=== PATIENT | male | born 1980 | race Caucasian/White ===

== ENCOUNTER 2016-04-23 10:08 | Outpatient (CLI) ==
--- NOTE | 2016-04-23 11:47 | US ---
Examination: Banks-scale and color ultrasonographic imaging of the scrotum and testicles. Comparison: None available. Reason for study: Testicular mass. FINDINGS: The right testicle measures approximately 4.2 x 2.2 x 3.3 cm with normal appearing parenc hymal echotexture and normal vascular flow. No lesions are seen within the right testicular parench yma. The right epididymis is unremarkable with normal appearing echotexture and normal vascular sandip w. Within the scrotal sac, and lateral to the right testicle. There are three separate well-circumscri bed lesions without significant interval vascularity with ISO to slightly hypoechoic architecture. The left testicle measures approximately 4.4 x 2.2 x 2.9 cm with normal appearing echotexture and no rmal vascular flow. No masses are seen within the left testicular parenchyma. The left epididymis is unremarkable with normal appearing echotexture and vascular flow. There is a mild left varicocele . Impression: 1. No ultrasonographic evidence of testicular torsion or parenchymal mass lesion. 2. There are three discrete paratesticular lesions adjacent to the right testicle without significa nt interval vascularity. Para testicular tumors are typically benign and may represent an adenomato id, granulomatous, or fibroma etiology. Recommend further evaluation. 3. Mild left varicocele.
== END 2016-04-23 10:09 | disposition home or self-care (01) ==
LOC: RAD 10:08
PROVIDERS: ATTEND Physician Assistant
DX: N50.89 Other specified disorders of the male genital organs (principal)

== ENCOUNTER 2016-12-09 09:16 | Emergency (ER) ==
[2016-12-09 09:23] VITALS: BP 123/86; TEMP 97.2; BMI 21.4
--- NOTE | 2016-12-09 09:59 | ED.PDOC ---
General ED Provider: Dr. BRYAN NORWOOD Chief Complaint: Headache Stated Complaint: Headache x 2 days with nausea/vomiting & photophobia. Maxalt eased TUCKER for a few hours then recurred. Similar to previous migraines. Time Seen by Physician: 09:54 Mode of Arrival: Walk-In Information Source: Patient Nursing and Triage Documentation Reviewed and Agree: Yes Neurological Complaint Exam - Headache Complaint/Exam Onset: Sudden Duration: 2 days Symptoms Are: Still present Timing: Constant Episodes Lasting: Days Worst Headache Ever: No Initial Severity: Moderate Current Severity: Severe Location: Right, Left, Frontal, Temporal Character: Reports: Throbbing, Migraine Aggravating: Reports: Exertion, Position change (lying flat worsens TUCKER), Bright lights Alleviating: Reports: Medications (Maxalt eased symptoms for a few hours then TUCKER recurred) Associated Signs and Symptoms: Reports: Nausea, Vomiting Related History: Reports: Similar episode (migraines) Related Surgical History: Reports: None SAH Risk Factors: Reports: None Meningitis Risk Factors: Reports: None SDH Risk Factors: Reports: None Temporal Arteritis Risk Factors: Reports: Normal Head CT Within Last 12 Months: No Fundoscopic Exam: Present: Normal Findings Papilledema Present: No Temporal Artery Tenderness: Present: None Sinus Tenderness: Present: None TMJ Tenderness: Present: None Meningeal Signs Positive: No Pain on Passive Flexion-Positive Kernig's: No ROM Limited In: No Limitiations Focal Weakness: Present: None Focal Sensory Loss: Present: None Gait: Normal Nystagmus Present: No Gag Reflex Present: Yes [id number]: Normal Findings Romberg Test Positive: No Babinski Sign: Negative Right, Negative Left Heel to Toe Normal: No Differential Diagnoses: Migraine Review of Systems - Review Of Systems Constitutional: Reports: No symptoms Eyes: Reports: Photophobia Ears, Nose, Mouth, Throat: Reports: No symptoms Respiratory: Reports: No symptoms Cardiac: Reports: No symptoms GI: Reports: Nausea, Vomiting : Reports: No symptoms Musculoskeletal: Reports: No symptoms Skin: Reports: No symptoms Neurological: Reports: Headache All Other Systems: Reviewed and Negative Past Medical History - Past Medical History Previously Healthy: Yes Endocrine: Reports: None Cardiovascular: Reports: None Respiratory: Reports: None Hematological: Reports: None Gastrointestinal: Reports: None Genitourinary: Reports: None Neuro/Psych: Reports: None (teenager, severe enough to see doctor approx every 3 months), Migraine Musculoskeletal: Reports: None Cancer: Reports: None - Surgical History General Surgical History: Reports: None - Family History Family History: Reports: None - Social History Smoking Status: Current every day smoker Hx Substance Use: No Alcohol Screening: None Lives: With family - Immunizations Tetanus Shot up to Date: No Influenza Vaccine within 12 Months: No Pneumococcal Vaccine up to Date: No Physical Exam - Physical Exam Appearance: Well-appearing Ill-appearing: None Pain Distress: Moderate Eyes: JADE, EOMI, Conjunctiva clear ENT: Ears normal, Nose normal, Oropharynx normal Neck: Supple Respiratory: Airway patent, Breath sounds clear, Breath sounds equal, Respirations nonlabored Cardiovascular: RRR, Pulses normal, No rub, No murmur GI/: Soft, Nontender, No masses, Bowel sounds normal, No Organomegaly Musculoskeletal: Normal strength, ROM intact, No edema, No calf tenderness Skin: Warm, Dry, Normal color Neurological: Sensation intact, Motor intact, Reflexes intact, Cranial nerves intact, Alert, Oriented Psychiatric: Affect appropriate, Mood appropriate Re-Evaluation - Re-Evaluation Time of Re-Evaluation: 10:52 Status: Improved (TUCKER stillpresent but not as bad. 07/21 vs previous 10/21.) Vital Signs Stable: Yes Pain Level: 10 Appearance: NAD Lungs: Clear Skin: Warm and Dry Neuro: Alert and Oriented X3 CV: RRR Critical Care Note - Critical Care Note Total Time (mins): 0 Course - Course Orders, Labs, Meds: Orders Category Date Time Status Morphine Sulfate [Morphine 2 mg/ml Syringe] MEDS 12/09/16 10:07 Discontinued 2 mg IM ONCE STA Morphine Sulfate [Morphine 2 mg/ml Syringe] MEDS 12/09/16 10:54 Stat 2 mg IM ONCE STA Promethazine HCl [Phenergan 25 mg/ml Vial] MEDS 12/09/16 10:08 Discontinued 25 mg IM ONCE STA Medications Discontinued Medications Generic Name Dose Route Start Last Admin Trade Name Haiderq PRN Reason Stop Dose Admin Morphine Sulfate 2 mg 12/09/16 10:07 12/09/16 10:18 Morphine 2 Mg/Ml Syringe IM 12/09/16 10:08 2 mg ONCE STA Administration Morphine Sulfate 2 mg 12/09/16 10:54 Morphine 2 Mg/Ml Syringe IM 12/09/16 10:55 ONCE STA Promethazine HCl 25 mg 12/09/16 10:08 12/09/16 10:19 Phenergan 25 Mg/Ml Vial IM 12/09/16 10:09 25 mg ONCE STA Administration Vital Signs: Temp Pulse Resp BP Pulse Ox 12/09/16 09:19 97.2 F L 97 H 20 123/86 98 Departure - Departure Time of Disposition: 10:55 Disposition: HOME SELF-CARE Discharge Problem: Migraine Instructions: Migraine Headache (ED) Condition: Good Pt referred to PMD for follow-up: Yes (Establish & follow up with PCP (list given)) Prescriptions: Rizatriptan Benzoate [Maxalt Sheet Sorter] 10 mg PO Q5MIN PRN #18 tab.rapdis PRN Reason: migraine headache Allergies/Adverse Reactions: Allergies No Known Allergies Allergy (Unverified 12/09/16 09:22) Home Medications: Ambulatory Orders Rizatriptan Benzoate [Maxalt Sheet Sorter] 10 mg PO Q5MIN PRN #18 tab.rapdis 12/09/16 Disposition Discussed With: Patient
[2016-12-09] MEDS ORDERED: MORPHINE 2 MG/ML SYRINGE IM STA ×2 (10:07→10:54)
[2016-12-09] MEDS ORDERED: PHENERGAN 25 MG/ML VIAL IM STA (10:08)
== END 2016-12-09 11:42 | disposition home or self-care (01) ==
LOC: ED 09:16
DX: G43.909 Migraine, unspecified, not intractable, without status migrainosus (principal); F17.210 Nicotine dependence, cigarettes, uncomplicated
CPT/HCPCS: 96372; 99282

== ENCOUNTER 2017-03-15 10:46 | Outpatient (CLI) ==
--- NOTE | 2017-03-15 11:54 | CT ---
EXAM: CT lumbar spine without contrast. HISTORY: Back pain with right-sided sciatica COMPARISON: None TECHNIQUE: Serial axial images of the spine were obtained from the lower thoracic spine through the pelvis without contrast. These were viewed in multiple planes. FINDINGS: Vertebral bodies demonstrate no acute compression fracture. There is 0.4 cm of anterolist hesis of L5 on S1 with small disc osteophyte. There are bilateral pallorous defects at L5. The face ts demonstrate minimal arthropathy. There is no lytic or blastic lesion. The remaining vertebral sola dies are normal. Disc spacing is maintained. L1-L2: Normal L2-L3: Normal L3-L4: Small broad-based disc bulge and facet arthropathy. There is no central or neural foraminal n arrowing. L4-L5: Small broad-based disc bulge and facet arthropathy with no significant central or neural clay inal narrowing. L5-S1: Anterolisthesis with broad-based disc bulge and facet arthropathy with moderate right and mild left neural foraminal narrowing. Limited views of the soft tissues are unremarkable. There is a round low attenuation lesion in the le ft iliac anteriorly adjacent to the sacroiliac joint measuring 1.2 cm in diameter with internal low a ttenuation material and material consistent with internal gas. Smaller adjacent low attenuation lesio ns are also present. The borders are sharp. IMPRESSION: 1. Bilateral pars defects at L5 with grade 1 anterolisthesis and moderate right and mild left neural foraminal narrowing. 2. Minimal scattered degenerative disease otherwise. 3. Low attenuation lesions in the anterior left iliac adjacent to the sacroiliac joint line which ap pears to contain internal gas likely representing benign cystic lesions, one with air from the joint space.
== END 2017-03-15 10:47 | disposition home or self-care (01) ==
LOC: RAD 10:46
PROVIDERS: ATTEND Emergency Medicine
DX: M54.41 Lumbago with sciatica, right side (principal); G89.29 Other chronic pain

== ENCOUNTER 2017-03-17 10:51 | Outpatient (CLI) ==
--- NOTE | 2017-03-17 11:29 | CT ---
EXAM: CT head without contrast. HISTORY: Migraine headache. COMPARISON: None available. TECHNIQUE: Multiple axial images of the brain were obtained from the skull base through the vertex w ithout intravenous contrast. Multiplanar reformats were provided. FINDINGS: There is no intracranial hemorrhage or extraaxial collection. The gastelum-white differentiat ion is maintained without evidence for acute large vascular territory infarction. The cortical sulci and basal cisterns are well visualized. There is no hydrocephalus, mass effect, or midline shift. The paranasal sinuses and mastoid air cells are clear. The calvarium is intact. IMPRESSION: No acute intracranial abnormality.
== END 2017-03-17 10:52 | disposition home or self-care (01) ==
LOC: RAD 10:51
PROVIDERS: ATTEND Emergency Medicine
DX: G43.009 Migraine without aura, not intractable, without status migrainosus (principal)

== ENCOUNTER 2017-04-26 13:46 | Outpatient (CLI) ==
--- NOTE | 2017-04-27 15:02 | MRI ---
EXAM: Lumbar spine MRI without contrast. HISTORY: Lumbago with right sciatica. COMPARISON: Lumbar spine CT scan 03/15/2017. TECHNIQUE: Multiplanar, multisequence MR images were acquired lumbar spine without contrast. FINDINGS: Conus medullaris ends at L1-2 and has normal signal intensity. Five non-rib bearing lumba r vertebra are present. The lumbar vertebra are normal in height. There is minor thoracolumbar dext roscoliosis centered at L2-3 and there is a trace retrolisthesis of L4 on L5. There is 6 mm anteroli sthesis of L5 on S1 due to chronic bilateral L5 pars interarticularis defects. There is mild disc sp sana narrowing and disc desiccation at L5-S1. Minor lumbar ventral spondylosis is present. There is mild endplate irregularity from T11-12 to L1-2 and at L5-S1. There are small chronic Schmorl's node s at T11 and T12. And there is a small poorly visualized chronic Schmorl's node along the posterior L 5 inferior endplate. Canal diameter is developmentally narrow. The partially visualized liver, spleen and kidneys are unremarkable. There are no paravertebral mass es. There is osteoarthrosis of both sacroiliac joints and there are degenerative cystic lesions in t he left iliac bone along the left sacroiliac joint. L1-2: The intervertebral disc is normal. L2-3: There is a minor disc bulge that is considered physiologic which minimally narrows the inferio r left neural foramen. L3-4: There is a minor disc bulge that is considered physiologic which minimally narrows the inferi or neural foramina bilaterally. There is minor bilateral facet arthropathy and this causes mild righ t neural foraminal stenosis. L4-5: There is a minor disc bulge that may be physiologic which minimally narrows the inferior neura l foramina bilaterally and minor bilateral facet arthropathy. There is mild to moderate right and mi ld left neural foraminal stenosis. L5-S1: There is anterolisthesis of L5 on S1 and there is a diffuse disc bulge that is asymmetric to the right with a superimposed central disc protrusion that minimally effaces the ventral thecal sac. Minor bilateral facet arthropathy is present and there is moderately severe left and severe right ne ural foraminal stenosis with compression of both L5 nerves, greater on the right. IMPRESSION: 1. 6 mm anterolisthesis L5 on S1 due to chronic bilateral L5 pars interarticularis defects. 2. Moderate discogenic disease L5-S1 with moderately severe left and severe right foraminal stenosis with compression of both L5 nerves, greater on the right. 3. Mild lower thoracic and lumbar degenerative endplate changes with small chronic Schmorl's nodes a t T11, T12 and L5. 4. Bilateral sacroiliac osteoarthrosis with two degenerative cysts along the left sacroiliac joint. Pelvic MRI could better define the anatomy.
== END 2017-04-26 13:47 | disposition home or self-care (01) ==
LOC: RAD 13:46
PROVIDERS: ATTEND Emergency Medicine
DX: M54.41 Lumbago with sciatica, right side (principal); G89.29 Other chronic pain

== ENCOUNTER 2017-12-29 13:01 | Outpatient (CLI) | END 2017-12-29 13:02 | disposition home or self-care (01) | LOC: RHC-LAB 13:01 | PROVIDERS: ATTEND Nurse Practitioner Family | DX: Z00.00 Encounter for general adult medical examination without abnormal findings (principal); Z51.81 Encounter for therapeutic drug level monitoring | CPT/HCPCS: 36415; 80053; 80061; 80306; 84443; 85025 ==

== ENCOUNTER 2018-01-17 15:29 | Outpatient (CLI) | END 2018-01-17 15:30 | disposition home or self-care (01) | LOC: RHC-LAB 15:29 | PROVIDERS: ATTEND Nurse Practitioner Family | DX: R79.89 Other specified abnormal findings of blood chemistry (principal) | CPT/HCPCS: 36415; 84443 ==

== ENCOUNTER 2022-08-18 10:20 | Observation (INO) ==
[2022-08-18 10:27] VITALS: BMI 19.3
--- NOTE | 2022-08-18 10:33 | ED.PDOC ---
General ED Provider: Dr. CHAS HARRIS MD Chief Complaint: Abdominal Pain Stated Complaint: my stomach hurts and i have been vomiting since this morning Time Seen by Provider: 08/18/22 10:33 Information Source: Patient Primary Care Provider: VENKATESH HOWARD APRN, FNP- Nursing and Triage Documentation Reviewed and Agree: Yes Does patient meet sepsis criteria?: No System Inflammatory Response Syndrome: Not Applicable Sepsis Protocol: For patient's 13 years and over: Temp is 96.8 and below OR 101 and greater Pulse >90 BPM Resp >20/minute Acutely Altered Mental Status Are patient's symptoms suggestive of a new infection, such as: -Pneumonia -Skin, Soft Tissue -Endocarditis -UTI -Bone, Joint Infection -Implantable Device -Acute Abdominal Infection -Wound Infection -Meningitis -Blood Stream Catheter Infection -Unknown GI Complaint Exam Abdominal Pain Complaint/Exam Onset: Sudden Duration: 3 hours Symptoms Are: Still present Timing: Constant Initial Severity: Severe Current Severity: Severe Location of Pain: Epigastric Radiates To: Reports Back Character: Reports Sharp Aggravating: Reports Food Alleviating: Reports None Associated Signs and Symptoms: Reports Back pain; Denies Diaphoresis, Fever, Cough, Chest pain, Dizziness, Constipation, Blood in stool, Dysuria or Urinary frequency AAA Risk Factors: Reports None Cardiac Risk Factors: Reports Smoking Review of Systems Review Of Systems Constitutional: Reports No symptoms GI: Reports Abdominal pain, Nausea and Vomiting All Other Systems: Reviewed and Negative [facility] Medical History Severe headache R51 - Headache (ICD-10) Spina bifida Q05.9 - Spina bifida, unspecified (ICD-10) Family History Grandfather/Grandmother Hyperthyroidism Social History Smoking and tobacco status: Current every day smoker Tobacco: How many years used: 30 Details: Occasional Substance use type: marijuana Surgical History cysts removed Physical Exam Physical Exam Appearance: Reports Well-appearing Ill-appearing: None Pain Distress: Moderate Eyes: Reports JADE and EOMI ENT: Reports Ears normal, Nose normal and Oropharynx normal Neck: Supple Respiratory: Reports Airway patent, Breath sounds clear and Breath sounds equal Cardiovascular: Reports RRR, Pulses normal, No rub and No murmur GI/: Reports Soft and Tender (severe epigastric tenderness) Musculoskeletal: Reports Normal strength and ROM intact Skin: Reports Warm and Dry Neurological: Reports Sensation intact and Motor intact Psychiatric: Reports Affect appropriate Critical Care Note Critical Care Note Total Critical Care Time (mins): 0 Course Course 08/19/22 04:51 08/19/22 04:51 Orders, Labs, Meds: Lab Review 08/18/22 10:52 WBC 15.60 H RBC 5.07 Hgb 15.4 Hct 45.2 MCV 89.2 MCH 30.4 MCHC 34.1 RDW Coeff of Juan 13.8 Plt Count 277 Immature Gran % (Auto) 0.3 Neut % (Auto) 85.2 H Lymph % (Auto) 8.1 L Atkinson % (Auto) 4.4 Eos % (Auto) 1.6 Baso % (Auto) 0.4 Neut # (Auto) 13.3 H Lymph # (Auto) 1.3 Atkinson # (Auto) 0.7 Eos # (Auto) 0.3 Baso # (Auto) 0.1 Immature Gran # (Auto) 0.0 Sodium 140.7 Potassium 3.84 Chloride 108.5 H Carbon Dioxide 25.9 Anion Gap 10.14 BUN 9.4 Creatinine 0.88 Estimated GFR (MDRD) 95.00 BUN/Creatinine Ratio 10.68 Glucose 129.9 H Calcium 9.30 Total Bilirubin 0.63 AST 27.0 ALT 21.9 Alkaline Phosphatase 95.8 Total Protein 7.41 Albumin 4.77 Globulin 2.64 Albumin/Globulin Ratio 1.80 Amylase 207.5 H Lipase 900.9 H Orders Category Date Time Status ADMIT OBSERVATION [PLACE PATIENT OBSERVATION] .TO ADMISSION 08/18/22 12:27 Active MEDSURG (NON-MONITORED BED) IV [ED IV/MEDIPORT/POWERPORT] .ONCE EMERGENCY 08/18/22 10:38 Active AMYLASE Stat LAB 08/18/22 10:52 Completed CBC W/ AUTO DIFF Stat LAB 08/18/22 10:52 Completed CMP [COMPREHENSIVE METABOLIC PANEL] Stat LAB 08/18/22 10:52 Completed LIPASE Stat LAB 08/18/22 10:52 Completed 0.9 % Sodium Chloride [Saline Flush] Meds 08/18/22 10:38 Active 1 syr IVF PRN PRN Acetaminophen Meds 08/18/22 10:38 Discontinued 1,000 mg in 100 ml IV ONCE Morphine Sulfate [Morphine 2 mg/ml Syringe] Meds 08/18/22 11:43 Discontinued 2 mg IVP ONCE STA Ondansetron HCl/Pf [Zofran 4 mg/2 ml] Meds 08/18/22 10:38 Discontinued 4 mg IVP ONCE STA Pantoprazole Sodium [Protonix IV] Meds 08/18/22 10:38 Discontinued 40 mg IVP ONCE STA Sodium Chloride 0.9% [Sodium Chloride] 1,000 ml Meds 08/18/22 10:[address] ABDOMEN/PELVIS WO CONTRAST Stat RADS 08/18/22 10:38 Completed Medications Generic Name Dose Route Start Last Admin Trade Name Freq PRN Reason Stop Dose Admin Enoxaparin Sodium 40 mg 08/19/22 09:00 Enoxaparin Sodium 40 Mg/0.4 Ml Syr SUBCUT DAILY CARL Morphine Sulfate 2 mg 08/18/22 12:54 08/18/22 16:39 Morphine Sulfate 2 Mg/Ml Syringe IVP 2 mg Q4HR PRN Administration Abdominal Pain Nicotine 1 patch 08/18/22 14:35 08/18/22 16:38 Nicotine 21 Mg Patch.Td24 TD 1 patch DAILY CARL Administration Ondansetron HCl 4 mg 08/18/22 12:54 08/18/22 14:27 Ondansetron Hcl/Pf 4 Mg/2 Ml Sdv IVP 4 mg Q6HR PRN Administration nausea/vomiting Sodium Chloride 1 syr 08/18/22 10:38 0.9% Sodium Chloride 10 Ml Disp.Syrin IVF PRN PRN To flush IV Discontinued Medications Generic Name Dose Route Start Last Admin Trade Name Freq PRN Reason Stop Dose Admin Acetaminophen 1,000 mg in 100 mls @ 400 mls/hr 08/18/22 10:38 08/18/22 11:01 Acetaminophen IV 08/18/22 10:52 400 mls/hr ONCE ONE Administration Sodium Chloride 1,000 mls @ 1,000 mls/hr 08/18/22 10:38 08/18/22 11:01 Sodium Chloride IV 08/18/22 11:37 1,000 mls/hr BOLUS STA Administration Lactated Ringer's 1,000 mls @ 250 mls/hr 08/18/22 12:54 08/18/22 14:27 Lactated Ringers IV 08/18/22 16:53 250 mls/hr .Q4H STA Administration Morphine Sulfate 2 mg 08/18/22 11:43 08/18/22 11:55 Morphine Sulfate 2 Mg/Ml Syringe IVP 08/18/22 11:44 2 mg ONCE STA Administration Morphine Sulfate 2 mg 08/18/22 18:56 08/18/22 19:13 Morphine Sulfate 2 Mg/Ml Syringe IVP 08/18/22 18:57 2 mg ONCE STA Administration Ondansetron HCl 4 mg 08/18/22 10:38 08/18/22 11:02 Ondansetron Hcl/Pf 4 Mg/2 Ml Sdv IVP 08/18/22 10:39 4 mg ONCE STA Administration Pantoprazole Sodium 40 mg 08/18/22 10:38 08/18/22 11:01 Pantoprazole Sodium 40 Mg Vial IVP 08/18/22 10:39 40 mg ONCE STA Administration Vital Signs: Temp Pulse Resp BP Pulse Ox 08/18/22 10:21 97.6 F 63 16 125/81 99 41 years old male with past medical history of low back pain due to lumbar disc herniation coming for severe abdominal pain and vomiting since this morning. Patient reports that since he woke up this morning he has been vomiting had about 13 episodes of vomiting nonbloody nonbilious and associated with severe abdominal pain in epigastric area radiating to his back. Patient reports that he takes a lot of ibuprofen and Tylenol for his back pain takes about 600 mg twice a day of ibuprofen, patient also is chronic smoker smokes 1 pack a day and smokes marijuana. Last meal was yesterday it is allergy of hamburger last bowel movement was also yesterday no diarrhea. Patient drinks alcohol occasionally no other home medications.Labs showed WBC of 15,000 no source of infection elevated amylase to 7.[address] scan is negative for acute findings symptoms and lab findings are consistent with acute pancreatitis patient was given 40 mg of Protonix IV 4 mg of Zofran and Tylenol 1 g IV and 2 mg of IV morphine symptoms has improved patient also received 1 L of NS bolus. Spoke with hospitalist Krishna discussed the patient condition regarding admission for IV fluids nausea and pain control and she is agreeable and patient will be admitted to her services Discharge Plan Discharge Patient Disposition: ADMITTED INPATIENT Discharge Problem: Acute pancreatitis Did you review [place] [employer] for ALL controlled substances?: Not Applicable ED Provider: CHAS HARRIS Condition: Poor Physician Progress Note: []
[2022-08-18] MEDS ORDERED: ACETAMINOPHEN 1,000 MG/100 ML BAG IV ONE (10:38)
[2022-08-18] MEDS ORDERED: ZOFRAN 4 MG/2 ML IVP STA (10:38)
[2022-08-18] MEDS ORDERED: SODIUM CHLORIDE 1,000 ML IV STA (10:38)
[2022-08-18] MEDS ORDERED: PROTONIX IV IVP STA (10:38)
[2022-08-18 10:56] LABS: BASOPHILS # (AUTO) 0.1 K/uL (0-0.2); BASOPHILS % (AUTO) 0.4 % (0.0-3.0); EOSINOPHILS # (AUTO) 0.3 K/ul (0.0-0.7); EOSINOPHILS % (AUTO) 1.6 % (0.0-7.0); HEMATOCRIT 45.2 % (42.0-52.0); HEMOGLOBIN 15.4 g/dl (14.0-18.0); IMMATURE GRANULOCYTE % (AUTO) 0.3 % (0.0-5.0); LYMPHOCYTES # (AUTO) 1.3 K/uL (0.60-3.4); LYMPHOCYTES % (AUTO) 8.1 (10.0-50.0); MEAN CORPUSCULAR HEMOGLOBIN 30.4 pg (27.0-31.0); MEAN CORPUSCULAR HGB CONC 34.1 (31.8-35.4); MEAN CORPUSCULAR VOLUME 89.2 fl (80.0-94.0); MONOCYTES # (AUTO) 0.7 K/uL (0.4-2.0); MONOCYTES % (AUTO) 4.4 (0-10); NEUTROPHILS # (AUTO) 13.3 K/ul (2.0-6.9); NEUTROPHILS % (AUTO) 85.2 % (42.2-75.2); PLATELET COUNT 277 10^3/uL (140-440); RDW COEFFICIENT OF VARIATION 13.8 % (11.6-14.8); RED BLOOD COUNT 5.07 10^6/ul (4.70-6.10)
[2022-08-18 11:08] LABS: ALANINE AMINOTRANSFERASE 21.9 U/L (0-50); ALBUMIN 4.77 g/dL (3.5-5.0); ALKALINE PHOSPHATASE 95.8 U/L (38-126); AMYLASE 207.5 U/L (30-110); BILIRUBIN,TOTAL 0.63 mg/dL (0.2-1.3); BLOOD UREA NITROGEN 9.4 mg/dL (9-20); CALCIUM 9.3 mg/dL (8.4-10.2); CARBON DIOXIDE 25.9 mmol/L (22-30.0); CHLORIDE 108.5 mmol/L (98-107); CREATININE 0.88 mg/dL (0.60-1.10); GLUCOSE 129.9 mg/dL (74-106); LIPASE 900.9 U/L (23-300); POTASSIUM 3.84 mmol/L (3.5-5.1); SODIUM 140.7 mmol/L (134.5-145); TOTAL PROTEIN 7.41 g/dL (6.3-8.2)
[2022-08-18] MEDS ORDERED: MORPHINE 2 MG/ML SYRINGE IVP STA ×2 (11:43→18:56)
--- NOTE | 2022-08-18 11:50 | CT ---
EXAM: CT ABDOMEN AND PELVIS WITHOUT CONTRAST HISTORY: Acute abdominal pain. TECHNIQUE: CT acquisition of the abdomen and pelvis from the lower thorax through the pelvis without IV contrast administration. IV contrast: None. Oral contrast: None. Low dose protocol: No. CT Dose Reduction Techniques Performed: Yes. COMPARISON: None FINDINGS: Liver: No mass. Normal morphology. Biliary: No biliary ductal dilation. Gallbladder is normal. Pancreas: No duct dilation. No mass. Spleen: Calcified splenic granulomas. No splenomegaly. Adrenals: No mass. Kidneys/Ureters: No mass, calculus, or hydronephrosis. GI Tract: No bowel dilation. No bowel wall thickening. Normal appendix. No diverticulosis. Peritoneal Cavity: No ascites. Retroperitoneum: No fluid collection. Lymph Nodes: No lymphadenopathy. Vasculature: No aortic calcifications. No aortic or iliac aneurysm within limitations of noncontrast examination. Pelvis: Urinary bladder is normal. No free fluid. Bones/Soft Tissues: Chronic bilateral L5 pars defects with associated grade II anterolisthesis of fiv e on S1 and severe bilateral L5-S1 neural foraminal stenosis. Mild chronic anterior wedge compressio n deformities of T10, T11, and T12. No acute fracture. Visualized soft tissues are within normal lambert its. Lower Thorax: Within normal limits. IMPRESSION: No acute abnormality in the abdomen or pelvis. Chronic L5 pars defects with grade 2 anterolisthesis of L5 on S1 resulting in severe bilateral neural foraminal stenosis. All CT scans are performed using dose optimization techniques as appropriate to the performed exam an d include at least one of the following: Automated exposure control, adjustment of the mA and/or kV according t o size, and the use of iterative reconstruction technique.
[2022-08-18] MEDS ORDERED: ZOFRAN 4 MG/2 ML IVP PRN (12:54)
[2022-08-18] MEDS ORDERED: LACTATED RINGERS 1,000 ML IV STA (12:54)
--- NOTE | 2022-08-18 13:12 | PCM ---
Date of Service Date Seen by Provider: 08/18/22 Time Seen by Provider: 12:30 Admit Day/Time Admission Date: 08/18/22 Admission Time: 12:27 Reason for Admission Chief Complaint: PANCREATITIS Hospital Provider Hospital Provider: KRISHNA DAVIES PA-C, [facility] Primary Care Physician Primary Care Physician: VENKATESH HOWARD APRN, FNP-BC History of Present Illness History of Present Illness: Patient is a 41-year-old male with past medical history of spina bifida who presented to the ER with chief complaint of nausea, vomiting, abdominal pain since the middle of the night. He states he woke up not feeling well. He felt fine yesterday. He states that he has upper mid back pain as well but he always has this pain so he is unsure if it is worse. Denies fever. No new medications. He denies alcohol use other than an occasional drink. States he has not had alcohol in the last few days. No history of pancreatitis in the past. In the ER he was found to have a lipase of 900, wbc count 15. Labs otherwise unremarkable. CT abdomen pelvis without negative. Patient was given fluids, morphine, Zofran with relief. Patient is feeling better at this time. He will be admitted to observation on [facility] for further evaluation and treatment. Case Discussed With Case Discussed With: Patient's case was discussed with the ER Physicians, Dr. Jeremie Love [facility] Medical History Severe headache R51 - Headache (ICD-10) Spina bifida Q05.9 - Spina bifida, unspecified (ICD-10) Surgical History cysts removed Family History Grandfather/Grandmother Hyperthyroidism Social History (Updated 08/18/22 @ 13:02 by KRISHNA DAVIES PA-C) Smoking and tobacco status: Current every day smoker Tobacco: How many years used: 30 Details: Occasional Substance use type: marijuana Allergies Allergies Allergy/AdvReac Type Severity Reaction Status Date / Time No Known Allergies Allergy Unverified 12/09/16 09:22 Current Medications Home Medications 1 [No Reported Medications] 08/18/22 [History Confirmed 08/18/22 Last Taken Unknown] Home Enoxaparin Sodium (Enoxaparin Sodium 40 Mg/0.4 Ml Syr) 40 mg SUBCUT DAILY CARL Lactated Ringer's (Lactated Ringers) 1,000 mls @ 250 mls/hr IV .Q4H STA Stop: 08/18/22 16:53 Morphine Sulfate (Morphine Sulfate 2 Mg/Ml Syringe) 2 mg IVP Q4HR PRN PRN Reason: Abdominal Pain Ondansetron HCl (Ondansetron Hcl/Pf 4 Mg/2 Ml Sdv) 4 mg IVP Q6HR PRN PRN Reason: nausea/vomiting Sodium Chloride (0.9% Sodium Chloride 10 Ml Disp.Syrin) 1 syr IVF PRN PRN PRN Reason: To flush IV Discontinued Medications Acetaminophen (Acetaminophen) 1,000 mg in 100 mls @ 400 mls/hr IV ONCE ONE Stop: 08/18/22 10:52 Last Admin: 08/18/22 11:01 Dose: 400 mls/hr Sodium Chloride (Sodium Chloride) 1,000 mls @ 1,000 mls/hr IV BOLUS STA Stop: 08/18/22 11:37 Last Admin: 08/18/22 11:01 Dose: 1,000 mls/hr Morphine Sulfate (Morphine Sulfate 2 Mg/Ml Syringe) 2 mg IVP ONCE STA Stop: 08/18/22 11:44 Last Admin: 08/18/22 11:55 Dose: 2 mg Ondansetron HCl (Ondansetron Hcl/Pf 4 Mg/2 Ml Sdv) 4 mg IVP ONCE STA Stop: 08/18/22 10:39 Last Admin: 08/18/22 11:02 Dose: 4 mg Pantoprazole Sodium (Pantoprazole Sodium 40 Mg Vial) 40 mg IVP ONCE STA Stop: 08/18/22 10:39 Last Admin: 08/18/22 11:01 Dose: 40 mg Review of Systems Constitutional: Denies Fever, Fatigue or Weakness Head: Reports Normocephalic and Atraumatic Eyes: Denies Vision Changes Ears: Denies Pain or Drainage Nose: Denies Post Nasal Drip or Congestion Mouth: Denies Sores or Pain Throat: Denies Sore Throat Cardiovascular: Denies Chest pain, Chest Pressure or Edema Respiratory: Denies Cough or Shortness of air Gastrointestinal: Reports Nausea, Vomiting and Abdominal pain; Denies Diarrhea Genitourinary: Denies Dysuria, Hematuria or Frequency Musculoskeletal: Reports Back Pain (Chronic) Dermatologic: Denies Rashes Neurological: Denies Headache, Dizziness, Syncope, Loss of Conciousness or Seizure Psychiatric: Denies Depression, Anxiety or Suicidal Physical examination Most Recent Vital Signs: Most Recent Vital Signs Temperature 97.6 F 08/18/22 10:21 Temperature Source Tympanic 08/18/22 10:21 Pulse Rate 63 08/18/22 10:21 Respiratory Rate 16 08/18/22 10:21 Blood Pressure 125/81 08/18/22 10:21 O2 Sat by Pulse Oximetry 99 08/18/22 10:21 Height 5 ft 9 in 08/18/22 10:21 Weight 131 lb 6.4 oz 08/18/22 10:21 Appearance: Positive Well-appearing, Well-nourished and Alert and Oriented x3 Skin: Positive [place], Warm, Good Turgor and Good Color; Negative Jaundice HEENT: Positive Normocephalic and Atraumatic Neck: Positive Supple and Midline Trachea Chest/Lungs: Positive Symmetrical With Equal Breath Sounds and Clear to Auscultation Bilaterally; Negative Rales, Rhonci or Wheezes Heart: Positive RRR GI/: Positive Soft, Bowel Sounds Normal and Tender (+Generalized tenderness) Musculoskeletal: Negative Decreased ROM Extremities: Positive Intact Peripheral Pulses; Negative Edema Neurological: Positive Cranial Nerves Intact, Alert, Oriented and Muscle Strength 5/5 in Upper and Lower Extremities Bilaterally Psychiatric: Positive Oriented x4, Appropriate Mood, Appropriate Affect, Intact Memory, Normal Judgement and Normal Insight Labs This Visit Labs This Visit: Labs This Visit 08/18/22 10:52 WBC 15.60 H RBC 5.07 Hgb 15.4 Hct 45.2 MCV 89.2 MCH 30.4 MCHC 34.1 RDW Coeff of Juan 13.8 Plt Count 277 Immature Gran % (Auto) 0.3 Neut % (Auto) 85.2 H Lymph % (Auto) 8.1 L [place] % (Auto) 4.4 Eos % (Auto) 1.6 Baso % (Auto) 0.4 Neut # (Auto) 13.3 H Lymph # (Auto) 1.3 [place] # (Auto) 0.7 Eos # (Auto) 0.3 Baso # (Auto) 0.1 Immature Gran # (Auto) 0.0 Sodium 140.7 Potassium 3.84 Chloride 108.5 H Carbon Dioxide 25.9 Anion Gap 10.14 BUN 9.4 Creatinine 0.88 Estimated GFR (MDRD) 95.00 BUN/Creatinine Ratio 10.68 Glucose 129.9 H Calcium 9.30 Total Bilirubin 0.63 AST 27.0 ALT 21.9 Alkaline Phosphatase 95.8 Total Protein 7.41 Albumin 4.77 Globulin 2.64 Albumin/Globulin Ratio 1.80 Amylase 207.5 H Lipase 900.9 H Imaging Imaging: EXAM: CT ABDOMEN AND PELVIS WITHOUT CONTRAST HISTORY: Acute abdominal pain. TECHNIQUE: CT acquisition of the abdomen and pelvis from the lower thorax through the pelvis without IV contrast administration. IV contrast: None. Oral contrast: None. Low dose protocol: No. CT Dose Reduction Techniques Performed: Yes. COMPARISON: None FINDINGS: Liver: No mass. Normal morphology. Biliary: No biliary ductal dilation. Gallbladder is normal. Pancreas: No duct dilation. No mass. Spleen: Calcified splenic granulomas. No splenomegaly. Adrenals: No mass. Kidneys/Ureters: No mass, calculus, or hydronephrosis. GI Tract: No bowel dilation. No bowel wall thickening. Normal appendix. No diverticulosis. Peritoneal Cavity: No ascites. Retroperitoneum: No fluid collection. Lymph Nodes: No lymphadenopathy. Vasculature: No aortic calcifications. No aortic or iliac aneurysm within limitations of noncontrast examination. Pelvis: Urinary bladder is normal. No free fluid. Bones/Soft Tissues: Chronic bilateral L5 pars defects with associated grade II anterolisthesis of five on S1 and severe bilateral L5-S1 neural foraminal stenosis. Mild chronic anterior wedge compression deformities of T10, T11, and T12. No acute fracture. Visualized soft tissues are within normal limits. Lower Thorax: Within normal limits. IMPRESSION: No acute abnormality in the abdomen or pelvis. Chronic L5 pars defects with grade 2 anterolisthesis of L5 on S1 resulting in severe bilateral neural foraminal stenosis. Review Statement Review Statement: I have independently reviewed and interpreted the labs/EKGs/imaging that were ordered by the ER provider. I have reviewed all outside records that are availa ble currently in our EMR including imaging/notes/labs from previous visits. Plan Plan: A&P: 1. Acute pancreatitis, unknown etiology - NPO, LR at 250 ml/hr, zofran 4 mg IVP prn for nausea, morphine 2 mg IVP prn for pain. RUQ US ordered. Lipid panel ordered. Trend Lipase. If pain and n/v free, may advance diet to clear liquid. 2. Leukocytosis - No infection noted. Likely in setting of acute pancreatitis. Repeat CBC in AM. 3. History of spina bifida - Severe miguel neural foraminal stenosis found on CT. F/u outpatient. Pt has chronic back pain. DVT Prophylaxis: Lovenox Time Spent: Greater than 80 minutes spent with patient, 50% of the time spent with this patient was devoted to counseling and coordination of care. [facility] minutes spent discussing advance care planning. FULL CODE Smoking Cessation: 3 minutes spent discussing smoking cessation. Admit to: Obs Discussed Plan of Care with Dr. Marcelina Villegas. Medications Medication Orders: Medications Ordered Category Date Time Status 0.9 % Sodium Chloride [Saline Flush] Meds 08/18/22 10:38 Active 1 syr IVF PRN PRN Enoxaparin Sodium [Lovenox] Meds 08/19/22 09:00 Ordered 40 mg SUBCUT DAILY Morphine Sulfate [Morphine 2 mg/ml Syringe] Meds 08/18/22 12:54 Ordered 2 mg IVP Q4HR PRN Ondansetron HCl/Pf [Zofran 4 mg/2 ml] Meds 08/18/22 12:54 Ordered 4 mg IVP Q6HR PRN Ringers Lactated Solution [Lactated Ringers] 1,000 ml Meds 08/18/22 12:54 Ordered IV 250 mls/hr
[2022-08-18 14:01] LABS: CHOLESTEROL 135.9 mg/dL (0-200); HDL CHOLESTEROL 47.8 mg/dL (35-60); TRIGLYCERIDES 58.7 mg/dL (0-150)
[2022-08-18] MEDS: MORPHINE 2 MG/ML SYRINGE IVP PRN ×2 (14:27→16:39)
--- NOTE | 2022-08-18 14:41 | US ---
EXAM: ULTRASOUND ABDOMEN COMPLETE. HISTORY: Acute pancreatitis COMPARISON: CT earlier the same day TECHNIQUE: Abdominal, real time with image documentation: Complete. FINDINGS: Liver: Normal. No intrahepatic biliary dilatation. Portal venous flow is normal direction. Gallbladder: Small amount of low-level dependent echoes. No echogenic shadowing stones or wall thickening. Common bile duct: 0.4 cm. Pancreas: Visualized portions are unremarkable. Spleen: Normal, length 8.8 cm. Right kidney: 9.7 cm length. No hydronephrosis. Left kidney: 11.1 cm in length. No hydronephrosis. Aorta: Visualized portions are normal in caliber. IVC: Visualized portions are normal in caliber. Urinary bladder normal. IMPRESSION: 1. No acute sonographic abnormality of the abdomen. 2. Small amount of gallbladder sludge.
[2022-08-18] MEDS: NICODERM 21 MG TD SCH (16:38)
[2022-08-19 05:11] LABS: BASOPHILS % (AUTO) 0.2 % (0.0-3.0); EOSINOPHILS # (AUTO) 0.4 K/ul (0.0-0.7); HEMATOCRIT 39.3 % (42.0-52.0); HEMOGLOBIN 13.2 g/dl (14.0-18.0); IMMATURE GRANULOCYTE # (AUTO) 0.1 (0.0-1.0); IMMATURE GRANULOCYTE % (AUTO) 0.4 % (0.0-5.0); LYMPHOCYTES # (AUTO) 2.7 K/uL (0.60-3.4); LYMPHOCYTES % (AUTO) 20.4 (10.0-50.0); MEAN CORPUSCULAR HGB CONC 33.6 (31.8-35.4); MEAN CORPUSCULAR VOLUME 89.3 fl (80.0-94.0); MONOCYTES # (AUTO) 1.1 K/uL (0.4-2.0); MONOCYTES % (AUTO) 8.4 (0-10); NEUTROPHILS # (AUTO) 8.8 K/ul (2.0-6.9); NEUTROPHILS % (AUTO) 67.6 % (42.2-75.2); PLATELET COUNT 243 10^3/uL (140-440); RDW COEFFICIENT OF VARIATION 13.8 % (11.6-14.8); WHITE BLOOD COUNT 13.02 K/ul (4.2-10.2)
[2022-08-19 05:24] LABS: ALANINE AMINOTRANSFERASE 17.1 U/L (0-50); ALBUMIN 3.61 g/dL (3.5-5.0); ALKALINE PHOSPHATASE 69.8 U/L (38-126); ASPARTATE AMINO TRANSFERASE 21.5 U/L (17-59); BILIRUBIN,TOTAL 0.74 mg/dL (0.2-1.3); BLOOD UREA NITROGEN 5.9 mg/dL (9-20); CALCIUM 8.48 mg/dL (8.4-10.2); CARBON DIOXIDE 28.2 mmol/L (22-30.0); CHLORIDE 106.9 mmol/L (98-107); CREATININE 0.9 mg/dL (0.60-1.10); GLUCOSE 98.6 mg/dL (74-106); LIPASE 567.9 U/L (23-300); POTASSIUM 3.59 mmol/L (3.5-5.1); TOTAL PROTEIN 5.81 g/dL (6.3-8.2)
[2022-08-19] MEDS ORDERED: LOVENOX SUBCUT SCH (09:00)
[2022-08-19] MEDS: NICODERM 21 MG TD SCH (10:26)
[2022-08-19 10:29] VITALS: BP 119/81; RESP 17; TEMP 96.9
--- NOTE | 2022-08-19 10:45 | DCSUM ---
Admission Date Admission Date: 08/18/22 Discharge Date Discharge Date: 08/19/22 Admission Diagnosis Admission Diagnosis: 1. Acute Pancreatitis Discharge Diagnosis Discharge Diagnosis: 1. Acute pancreatitis, resolved 2. Spina bifida, chronic, stable Hospital Provider Hospital Provider: KRISHNA DAVIES PA-C, [facility] [place] Primary Care Physician Primary Care Physician: VENKATESH HOWARD APRN, PRODUCT DEVELOPMENT CONSULTANT-[employer] Summary of History and Physical Summary of History and Physical: Patient is a 41-year-old male with past medical history of spina bifida who presented to the ER with chief complaint of nausea, vomiting, abdominal pain since the middle of the night. He states he woke up not feeling well. He felt fine yesterday. He states that he has upper mid back pain as well but he always has this pain so he is unsure if it is worse. Denies fever. No new medications. He denies alcohol use other than an occasional drink. States he has not had alcohol in the last few days. No history of pancreatitis in the past. In the ER he was found to have a lipase of 900, wbc count 15. Labs otherwise unremarkable. CT abdomen pelvis without negative. Patient was given fluids, morphine, Zofran with relief. Patient is feeling better at this time. He will be admitted to observation on [facility] for further evaluation and treatment. Hospital Course Subjective: Patient was treated with IV fluids, Zofran, morphine. He has not required morphine since last night. His nausea has resolved. He was able to tolerate p.o. diet. Lipase has improved to 500s. Right upper quadrant ultrasound was negative for any acute findings. Lipid panel normal. No new recent medic ations. Discussed unknown etiology at this time. Advised to push fluids and progress diet as tolerated. Avoid any alcohol use. Patient is agreeable to plan of care. He does ask to not make a PCP follow-up for him at this time as he has no insurance. He understands the importance of getting in with a primary care provider as soon as he is able. Appearance: Pleasant, No Apparent Distress, Alert and Well-appearing HEENT: MMM and Supple CVS: No Murmur Abdomen: Soft, Non-Tender and No Distention Respiratory: No Dyspnea Extremities: No Edema Vital Signs: Most Recent Vital Signs Temperature 96.9 F L 08/19/22 10:00 Temperature Source Temporal Artery Scan 08/19/22 10:00 Temperature Source Tympanic 08/18/22 10:21 Pulse Rate 88 08/19/22 10:00 Respiratory Rate 17 08/19/22 10:00 Blood Pressure 119/81 08/19/22 10:00 Blood Pressure Mean 93 08/19/22 10:00 Blood Pressure Left Arm 111/71 08/18/22 13:11 Blood Pressure Location Right Arm 08/19/22 10:00 Blood Pressure Position Sitting 08/19/22 10:00 O2 Sat by Pulse Oximetry 99 08/19/22 10:00 Oxygen Delivery Method Room Air 08/19/22 10:00 Height 5 ft 9 in 08/18/22 13:11 Weight 131 lb 08/18/22 13:11 Imaging: EXAM: CT ABDOMEN AND PELVIS WITHOUT CONTRAST HISTORY: Acute abdominal pain. TECHNIQUE: CT acquisition of the abdomen and pelvis from the lower thorax through the pelvis without IV contrast administration. IV contrast: None. Oral contrast: None. Low dose protocol: No. CT Dose Reduction Techniques Performed: Yes. COMPARISON: None FINDINGS: Liver: No mass. Normal morphology. Biliary: No biliary ductal dilation. Gallbladder is normal. Pancreas: No duct dilation. No mass. Spleen: Calcified splenic granulomas. No splenomegaly. Adrenals: No mass. Kidneys/Ureters: No mass, calculus, or hydronephrosis. GI Tract: No bowel dilation. No bowel wall thickening. Normal appendix. No diverticulosis. Peritoneal Cavity: No ascites. Retroperitoneum: No fluid collection. Lymph Nodes: No lymphadenopathy. Vasculature: No aortic calcifications. No aortic or iliac aneurysm within limitations of noncontrast examination. Pelvis: Urinary bladder is normal. No free fluid. Bones/Soft Tissues: Chronic bilateral L5 pars defects with associated grade II anterolisthesis of five on S1 and severe bilateral L5-S1 neural foraminal stenosis. Mild chronic anterior wedge compression deformities of T10, T11, and T12. No acute fracture. Visualized soft tissues are within normal limits. Lower Thorax: Within normal limits. IMPRESSION: No acute abnormality in the abdomen or pelvis. Chronic L5 pars defects with grade 2 anterolisthesis of L5 on S1 resulting in severe bilateral neural foraminal stenosis. EXAM: ULTRASOUND ABDOMEN COMPLETE. HISTORY: Acute pancreatitis COMPARISON: CT earlier the same day TECHNIQUE: Abdominal, real time with image documentation: Complete. FINDINGS: Liver: Normal. No intrahepatic biliary dilatation. Portal venous flow is normal direction. Gallbladder: Small amount of low-level dependent echoes. No echogenic shadowing stones or wall thickening. Common bile duct: 0.4 cm. Pancreas: Visualized portions are unremarkable. Spleen: Normal, length 8.8 cm. Right kidney: 9.7 cm length. No hydronephrosis. Left kidney: 11.1 cm in length. No hydronephrosis. Aorta: Visualized portions are normal in caliber. IVC: Visualized portions are normal in caliber. Urinary bladder normal. IMPRESSION: 1. No acute sonographic abnormality of the abdomen. 2. Small amount of gallbladder sludge. Lab Results Last 24 Hours: 08/19/22 08/19/22 08/18/22 04:51 04:51 12:54 WBC 13.02 H RBC 4.40 L Hgb 13.2 L Hct 39.3 L MCV 89.3 MCH 30.0 MCHC 33.6 RDW Coeff of Juan 13.8 Plt Count 243 Immature Gran % (Auto) 0.4 Neut % (Auto) 67.6 Lymph % (Auto) 20.4 [place] % (Auto) 8.4 Eos % (Auto) 3.0 Baso % (Auto) 0.2 Neut # (Auto) 8.8 H Lymph # (Auto) 2.7 [place] # (Auto) 1.1 Eos # (Auto) 0.4 Baso # (Auto) 0.0 Immature Gran # (Auto) 0.1 Sodium 138.0 Potassium 3.59 Chloride 106.9 Carbon Dioxide 28.2 Anion Gap 6.49 BUN 5.9 L Creatinine 0.90 Estimated GFR (MDRD) 93.00 BUN/Creatinine Ratio 6.55 Glucose 98.6 Hemoglobin A1c 5.04 Calcium 8.48 Total Bilirubin 0.74 AST 21.5 ALT 17.1 Alkaline Phosphatase 69.8 D Total Protein 5.81 L Albumin 3.61 Globulin 2.20 Albumin/Globulin Ratio 1.64 Triglycerides 58.7 Cholesterol 135.9 LDL Cholesterol, Calc 76 VLDL Cholesterol 12 HDL Cholesterol 47.8 Cholesterol/HDL Ratio 2.8 L Amylase Lipase 551.7 H 567.9 H 08/18/22 10:52 WBC 15.60 H RBC 5.07 Hgb 15.4 Hct 45.2 MCV 89.2 MCH 30.4 MCHC 34.1 RDW Coeff of Juan 13.8 Plt Count 277 Immature Gran % (Auto) 0.3 Neut % (Auto) 85.2 H Lymph % (Auto) 8.1 L [place] % (Auto) 4.4 Eos % (Auto) 1.6 Baso % (Auto) 0.4 Neut # (Auto) 13.3 H Lymph # (Auto) 1.3 [place] # (Auto) 0.7 Eos # (Auto) 0.3 Baso # (Auto) 0.1 Immature Gran # (Auto) 0.0 Sodium 140.7 Potassium 3.84 Chloride 108.5 H Carbon Dioxide 25.9 Anion Gap 10.14 BUN 9.4 Creatinine 0.88 Estimated GFR (MDRD) 95.00 BUN/Creatinine Ratio 10.68 Glucose 129.9 H Hemoglobin A1c Calcium 9.30 Total Bilirubin 0.63 AST 27.0 ALT 21.9 Alkaline Phosphatase 95.8 Total Protein 7.41 Albumin 4.77 Globulin 2.64 Albumin/Globulin Ratio 1.80 Triglycerides Cholesterol LDL Cholesterol, Calc VLDL Cholesterol HDL Cholesterol Cholesterol/HDL Ratio Amylase 207.5 H Lipase 900.9 H Discharge Instructions Discharge Planning: Discharge Planning > 80 minutes DISCHARGE TO HOME DX: ACUTE PANCREATITIS PRESCRIPTIONS: NONE DIET: PROGRESS TOLERATED, PUSH FLUIDS ACTIVITY: TOLERATED Discharge Medications: Medications at Discharge (Home Meds & RX) 1 [No Reported Medications] 08/18/22 Discharge Plan Discharge Discharge Orders: Discharge Patient (ONCE); Ordered 08/19/22 Ordered By: KRISHNA DAVIES Activity Restrictions/Additional Instructions: DISCHARGE TO HOME DX: ACUTE PANCREATITIS PRESCRIPTIONS: NONE DIET: PROGRESS TOLERATED, PUSH FLUIDS ACTIVITY: TOLERATED Instructions: Pancreatitis (GEN) Patient Disposition: HOME SELF-CARE Prescriptions: No Action No Reported Medications Did you review [place] CUSTOMER EXPERIENCE MANAGER for ALL controlled substances?: Not Applicable Discussed opioids are addictive and Narcan is available by prescription or from pharmacy.: No Condition: Good
== END 2022-08-19 11:59 | disposition home or self-care (01) ==
LOC: ED 10:20 → MEDSURG B 10:20
PROVIDERS: ADMIT Hospitalist; ATTEND Physician Assistant
DX: K85.90 Acute pancreatitis without necrosis or infection, unspecified; R10.0 Acute abdomen; Q05.9 Spina bifida, unspecified; F17.210 Nicotine dependence, cigarettes, uncomplicated; D72.829 Elevated white blood cell count, unspecified; F12.90 Cannabis use, unspecified, uncomplicated